=== PATIENT | female | born 1930 | race Caucasian/White ===

== ENCOUNTER 2016-10-08 17:12 | Inpatient (IN) | payer MEDICARE, OTHER ==
[~2016-10-08] VITALS: Ht 162.6 cm; Wt 80.0 kg
[2016-10-08 17:25] VITALS: BP 234/108; PULSE 83; RESP 15; O2SAT 96
[2016-10-08 18:58] VITALS: BP 195/91; PULSE 78; RESP 12; O2SAT 95
[2016-10-08 20:05] VITALS: BP 195/91; PULSE 78; RESP 12; O2SAT 95
--- NOTE | 2016-10-08 20:29 | ED.REPORT ---
HPI-Neurologic Deficit Date of Service Oct 08, 2016 ED Provider: Howard Barker DO Patient is a 86 year old female with a history of hypertension who presents to the ED after she developed a headache 5 days ago and slurred speech 4 days ago. Patient states that she developed a severe headache 5 days ago which prevented her from sleeping well. However her headache was mostly resolved by the next day and has only been intermittently present since that time. Patient reported having high blood pressure when her headache first began. Patient states that she has not noticed a correlation between high blood pressure and her headaches.The next day the patient develop slurred speech and difficulty with word finding. Patient states that these symptoms are now resolved. Patient reports ongoing shortness of breath (something that is currently being workup up by her PCP) but she denies chest pain. She denies nausea, vomiting, or diarrhea. The patient states that she presented to the ED tonight because her family finally made her seek medical care. Patient denies a history of prior stroke. Nursing Notes Stated Complaint: SLURRED SPEECH/HIGH BP Chief Complaint: General Complaint Nursing Notes Reviewed: Yes Allergies: Coded Allergies: Sulfa (Sulfonamide Antibiotics) (Verified Allergy, Intermediate, rash, ) Scheduled ([Qvar]) 40 MCG INHALATION 2 PUFF DAILY Atenolol (Atenolol) 50 Mg Tablet 50 MG PO DAILY Ferrous Sulfate (Ferrous Sulfate) 325 Mg Tablet 325 MG PO DAILY Lisinopril (Lisinopril) 40 Mg Tablet 40 MG PO DAILY Montelukast (Montelukast) 10 Mg Tablet 10 MG PO HS Scheduled PRN Albuterol HFA (Proair HFA) 8.5 Gm Hfa.aer.ad 2 PUFFS INHALATION Q4H PRN PRN For Shortness of Breath General Time Seen by Provider: 20:28 Chief Complaint Slurred speech, Other (headache) Hx Obtained From: Patient Arrived By: Walk-in Sudden in Onset?: No Onset Occurred: 4 days ago (4-5 days ago) Symptom Duration: Since onset Location: : Head Quality: Painful Severity: Current: Mild Severity: Maximum: Severe Recent Healthcare: No recent doctor visit, No recent hospitalization Similar Sx Previous: No Risk Factors NIH Stroke Scale Level of Consciousness: Alert and responsive (0) Ask Month & Age: Both questions right (0) Open/Close Eyes/Hand Die Lay Out Worker: Performs both tasks (0) Horizontal EO Movements: None (0) Visual Otero: No visual loss (0) Facial Palsy: Normal symmetry (0) Right Arm Motor Drift (10s): No drift 10 sec (0) Left Arm Motor Drift (10s): No drift 10 sec (0) Right Leg Motor Drift (5s): No drift 5 sec (0) Left Leg Motor Drift (5s): No drift 5 sec (0) Limb Ataxia FNF/Heel-Greene: No ataxia (0) Sensation (Arms/Legs/Face): No sensory loss (0) Language Aphasia: No aphasia, normal (0) Dysarthria: No dysarthria, normal (0) Extinction/Inattention: No exctinct/inattent (0) NIHSS Score: 0 Time NIHSS Performed: 21:20 Date NIHSS Performed: Oct 08, 2016 Past Medical History Past Medical History Reports: Hypertension Past Surgical History none reported Smoking History Unknown if Ever Smoker Social History Other Social History: Good social support, Local resident Ambulatory Status Independent Review of Systems Constitutional: Denies: Chills Respiratory: Reports: Shortness of breath, Denies: Non-productive cough Cardiovascular: Denies: Chest pain, Palpitations GI: Denies: Diarrhea, Nausea, Vomiting Neurologic: Reports: Headache, Slurred speech, Unable to speak (difficulty with word finding) Complete sys rev & neg: except as marked. Physical Exam Initial Vital Signs Vital Signs (First) Date Time Temp Pulse Resp B/P Pulse Ox O2 Delivery O2 Flow Rate FiO2 10/08/16 17:25 36.2 83 15 234/108 96 Room Air Initial VS: Reviewed ENT: Conjunctiva normal, No scleral icterus Neck: Supple, Full range of motion Abdomen / GI: Soft, Non-tender, No guarding, No rebound, No distention Extremities: Vascular intact, Neuro intact, No swelling Skin: Warm, Dry, No cyanosis Psychiatric: Mood/affect normal, Behavior normal, Normal thought content General/Constitutional: Awake, Alert, No acute distress Head / Eyes: Normocephalic, PERRL, Conjunctiva NL Respiratory / Chest: Breath sounds NL, Breath sounds = bilat, No respiratory distress, No rales, No rhonchi, No wheezing Cardiovascular: Heart rate NL, Regular rhythm, Heart sounds NL, No murmurs Neurologic: Oriented X3, Speech NL, No motor deficits, No sensory deficits see NIH stroke scale for further details Interpretation & Diagnostics Lab Results Interpretation Result Diagram: 10/09/16 0325 10/09/16 0325 Test 10/08/16 20:50 10/08/16 21:49 Prothrombin Time 10.1sec (8.1-12.5) Prothromb Time International Ratio 0.95ratio Troponin T 0.010ug/L (0.0-0.011) Urine Color Yellow (YELLOW) Urine Appearance Cloudy (CLEAR,HAZY) Urine pH 6.5 (5.0-8.0) Urine Specific [place] 1.020 (1.003-1.035) Urine Protein Negativemg/dL (NEG,TRACE) Urine Glucose (UA) Negativemg/dL (NEGATIVE) Urine Ketones Tracemg/dL (NEGATIVE) Urine Occult Blood Small (NEGATIVE) Urine Nitrite Positive (NEGATIVE) Urine Bilirubin Negative (NEGATIVE) Urine Urobilinogen Normalmg/dL (NORMAL) Urine Leukocyte Esterase Large (NEGATIVE) Urine RBC 3-10/hpf (0-2) Urine WBC >50/hpf (0-5) Urine Epithelial Cells Moderate/hpf (NONE-MOD) Urine Crystals None seen (NONE SEEN) Urine Bacteria Many/hpf (NONE-FEW) Urine Hyaline Casts None/lpf (NONE) Urine Granular Casts None seen (NONE SEEN) Urine Waxy Casts None seen (NONE SEEN) Urine Red Blood Cell Casts None seen (NONE SEEN) Urine White Blood Cell Casts None seen (NONE SEEN) Urine Mucus None seen (None Seen) Urine Trichomonas None seen (NONE SEEN) Urine Yeast None (NONE SEEN) Urinalysis Comment None Urine Culture Reflexed Indicated CT Head Interpretation IMPRESSION: 1. No acute intracranial abnormality. 2. Mild cerebral volume loss. 3. Fluid opacification of the right maxillary sinus partially visualized suggesting acute sinusitis. Dictated by: Titi Watkins M.D. on 10/08/2016 at 20:42 Approved by: Titi Watkins M.D. on 10/08/2016 at 20:45 Study: Head CT no contrast Interpretation / Wet Read by: Interpret - Radiologist Re-Eval/Medical Decision Source of Hx: Old records Re-Evaluation/Progress : Time of Eval: 22:36 Patient Status: Condition improved Re-Evaluation/Progress Note: Patient was informed that her CT scan was negative. Her symptoms are likely due to a TIA. Her headache is likely due to her ongoing hypertension, which has improved in the ED. She was also found to have UTI. Patient will be admitted to the hospital for further care. Patient understands and agrees with this plan. All questions were addressed. Consultation : Referral / Consult Name: Edmund Crooks MD Consulted With: Hospitalist Call Returned at: 22:43 Software Testing Specialist: Will see patient, Agrees with eval, Agrees with plan, Accepts admit Note: Spoke with Dr. Crooks, hospitalist, who agrees to accept admit. Counseled Regarding: Diagnosis, Lab results, Need for admission Discharge & Departure Impression: Primary Impression: TIA (transient ischemic attack) Transient cerebral ischemia type: unspecified Qualified Code: G45.9 - Transient cerebral ischemic attack, unspecified Additional Impressions: UTI (urinary tract infection) Urinary tract infection type: acute cystitis Hematuria presence: without hematuria Qualified Code: N30.00 - Acute cystitis without hematuria Hypertension Hypertension type: essential hypertension Hypertension goal: unspecified goal Qualified Code: I10 - Essential (primary) hypertension Sinusitis Sinusitis location: unspecified location Chronicity: acute Recurrence: not specified Qualified Code: J01.90 - Acute sinusitis, unspecified Disposition: ADMITTED TO HOSPITAL Discharge Condition All VS Reviewed: Yes Condition: Stable Referrals: Deandre Briceño DO (PCP) Beto Attestation Portions of this note were transcribed by Tova Ruiz. I, Dr. Barker personally performed the history, physical exam and medical decision-making; I reviewed and confirmed the accuracy of the information in the transcribed note. Signed by: Beto Davila, 10/08/2016 1172 copies to: Deandre Briceño Todd P DO Oct 08, 2016 20:29 Tova Ruiz Oct 08, 2016 20:50 (NONE-MOD) Urine Crystals None seen (NONE SEEN) Urine Bacteria Many/hpf (NONE-FEW) Urine Hyaline Casts None/lpf (NONE) Urine Granular Casts None seen (NONE SEEN) Urine Waxy Casts None seen (NONE SEEN) Urine Red Blood Cell Casts None seen (NONE SEEN) Urine White Blood Cell Casts None seen (NONE SEEN) Urine Mucus None seen (None Seen) Urine Trichomonas None seen (NONE SEEN) Urine Yeast None (NONE SEEN) Urinalysis Comment None Urine Culture Reflexed Indicated CT Head Interpretation IMPRESSION: 1. No acute intracranial abnormality. 2. Mild cerebral volume loss. 3. Fluid opacification of the right maxillary sinus partially visualized suggesting acute sinusitis. Dictated by: Titi Watkins M.D. on 10/08/2016 at 20:42 Approved by: Titi Watkins M.D. on 10/08/2016 at 20:45 Study: Head CT no contrast Interpretation / Wet Read by: Interpret - Radiologist Re-Eval/Medical Decision Source of Hx: Old records Re-Evaluation/Progress : Time of Eval: 22:36 Patient Status: Condition improved Re-Evaluation/Progress Note: Patient was informed that her CT scan was negative. Her symptoms are likely due to a TIA. Her headache is likely due to her ongoing hypertension, which has improved in the ED. She was also found to have UTI. Patient will be admitted to the hospital for further care. Patient understands and agrees with this plan. All questions were addressed. Consultation : Referral / Consult Name: Edmund Crooks MD Consulted With: Hospitalist Call Returned at: 22:43 Software Testing Specialist: Will see patient, Agrees with eval, Agrees with plan, Accepts admit Note: Spoke with Dr. Crooks, hospitalist, who agrees to accept admit. Counseled Regarding: Diagnosis, Lab results, Need for admission Discharge & Departure Impression: Primary Impression: TIA (transient ischemic attack) Transient cerebral ischemia type: unspecified Qualified Code: G45.9 - Transient cerebral ischemic attack, unspecified Additional Impressions: UTI (urinary tract infection) Urinary tract infection type: acute cystitis Hematuria presence: without hematuria Qualified Code: N30.00 - Acute cystitis without hematuria Hypertension Hypertension type: essential hypertension Hypertension goal: unspecified goal Qualified Code: I10 - Essential (primary) hypertension Sinusitis Sinusitis location: unspecified location Chronicity: acute Recurrence: not specified Qualified Code: J01.90 - Acute sinusitis, unspecified Disposition: ADMITTED TO HOSPITAL Discharge Condition All VS Reviewed: Yes Condition: Stable Referrals: Deandre Briceño DO (PCP) Scribe Attestation Portions of this note were transcribed by Tova Ruiz. I, Dr. Barker personally performed the history, physical exam and medical decision-making; I reviewed and confirmed the accuracy of the information in the transcribed note. Signed by: Beto Davila, 10/08/2016 2245 copies to: Deandre Briceño Todd P DO Oct 08, 2016 20:29 Tova Ruiz Oct 08, 2016 20:50
--- NOTE | 2016-10-08 20:52 | DRSVH ---
PROCEDURE: CT BRAIN WITHOUT CONTRAST ([id number]) INDICATIONS: slurred speech TECHNIQUE: Noncontrast 4.5 mm thick angled axial sections acquired from the foramen magnum to the vertex, with c oronal reformats. COMPARISON: None. FINDINGS: Image quality: Excellent. CSF spaces: Basal cisterns are patent. No extra-axial fluid collections. The ventricles are symmet ramon in size and shape. There is mild cerebral volume loss with prominence of the extra-axial spaces and ventricles. Brain: No intracranial hemorrhage, mass, or mass effect. 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 The gallo-white matter junction appears preserved. Skull and face: Calvarium and visualized facial bones appear intact, without suspicious lesions. Sinuses: Visualized sinuses demonstrate partial fluid opacification of the right maxillary sinus wit h an air-fluid level. Mastoid air cells are clear. IMPRESSION: 1. No acute intracranial abnormality. 2. Mild cerebral volume loss. 3. Fluid opacification of the right maxillary sinus partially visualized suggesting acute sinusitis. Dictated by: Titi Watkins M.D. on 10/08/2016 at 20:42 Approved by: Titi Watkins M.D. on 10/08/2016 at 20:45
[2016-10-08 21:18] LABS: BASOPHILS % (AUTO) 0.3 % (0-3); EOSINOPHILS % (AUTO) 1.7 % (0-5); MONOCYTES % (AUTO) 5.9 % (4-12); Mean Corpuscular Volume 89.3 fL (81-100); NEUTROPHILS % (AUTO) 74.7 % (40-74); Platelet Count 339 bil/L (150-400)
[2016-10-08 21:26] LABS: INR 0.95 ratio
[2016-10-08] MEDS ORDERED: Amoxicillin-Clav 875-125 mg Tablet PO ONE (22:00)
[2016-10-08 22:16] LABS: APPEARANCE,URINE CLOUDY (CLEAR,HAZY); COLOR,URINE YELLOW (YELLOW); OCCULT BLOOD,URINE SMALL (NEGATIVE); PH,URINE 6.5 (5.0-8.0); UROBILINOGEN,URINE NORMAL (NORMAL)
[2016-10-08 22:22] LABS: TROPONIN T 0.01 ug/L (0.0-0.011)
[2016-10-08] MEDS ORDERED: cefTRIAXone Inj 2,000 MG in Dextrose 5% Minibag Plus 50 ML IV ONE (22:25)
[2016-10-08] MEDS ORDERED: FERR-83 PO (22:33)
[2016-10-08] MEDS ORDERED: QVAR INHALATION (22:33)
[2016-10-08] MEDS ORDERED: LISI40TA PO (22:33)
[2016-10-08] MEDS ORDERED: ATEN50TA PO (22:33)
[2016-10-08] MEDS ORDERED: ALBU8.5H2 INHALATION (22:33)
[2016-10-08] MEDS ORDERED: MONT10TA23 PO (22:33)
[2016-10-08 22:41] VITALS: BP 185/81; PULSE 84; RESP 20; O2SAT 95
[2016-10-08] MEDS ORDERED: Ondansetron 2 mg/mL 2 mL Inj IV PRN (23:40)
[2016-10-08] MEDS ORDERED: Labetalol 5 mg/mL 4 mL Inj IVPUSH PRN (23:40)
[2016-10-08] MEDS ORDERED: Polyethylene Glycol (PEG) 17 Gm Powder PO PRN (23:40)
[2016-10-08] MEDS ORDERED: Alum-Mag Hydrox-Simeth 30 mL Suspension PO PRN (23:40)
[2016-10-08 23:59] VITALS: BP 216/99; PULSE 69; RESP 20; O2SAT 95
[2016-10-09] VITALS (10 sets, daily range): BP systolic 138–202; BP diastolic 66–95; PULSE 60–86; RESP 16–20; O2SAT 92–97
--- NOTE | 2016-10-09 00:07 | PCM.HPMED ---
Subjective Date of Service Oct 08, 2016 Primary Provider: Admitting Physician: Edmund Crooks MD Primary Care Physician: Deandre Briceño DO Attending Physician: Edmund Crooks MD Admit Status: From the Emergency Department, [facility] Telemetry Chief Complaint: Headache and slurred speech History of Present Illness: Ms. Ashanti Chavez is a pleasant 86 year old female with a history of hypertension and remote history of right breast cancer s/p lumpectomy who presents to the ED after she developed a headache 5 days ago and slurred speech 4 days ago. Patient reports a severe but intermittent left-sided headache in the last 5 days. She cannot describe the headache very well, but reports to have occasional "shocking sensation" from the headache. It localizes from the left occiput and radiates to the left frontal. She also notes some changes in vision as well. The headache does not improve with Tylenol. About 4 days ago, her son noted that her speech was a little slurred and the patient also had difficulty finding words, but no other stroke symptoms. Thus, they did not think much of it. The slurred speech resolved the next day, but her headache persists. The patient has been checking her BP at home and it has been high with SBP>200. Today, she discussed this with her friend, who is a nurse, and was recommended to go to the ED. Patient also admits to ongoing shortness of breath and dry cough for 3 months that is currently being worked up by her PCP. Her recent CT chest on 10/03 did not reveal any pulmonary issue. She was given Qvar and Ventolin yesterday. Patient denies any history of smoking, asthma, or COPD. She has been pretty healthy for most of her life. She was diagnosed with HTN about 6 months ago and was started on Lisinopril and Atenolol. Patient states that she has never had UTI in her life, but notes that increased urinary frequency and nocturia recently. She denies dysuria, fever, chills, nausea, vomiting, or abdominal pain. No prior history of stroke or CAD. She admits to high salt diet and recent stress in the family. She also has had uncontrolled right knee pain that she has to use crutches to get around. She has a walker but does not like to use it. In the ED, patient had marked elevated BP of 234/108. Her vital signs were otherwise normal. Unremarkable CBC and CMP. UA positive for many bacteria, WBC, and leukocyte esterase. CT brain without contrast showed No acute intracranial abnormality. NIHSS score of 0. Incidentally, she was found to have fluid opacification of the right maxillary sinus partially visualized suggesting acute sinusitis on the CT. Review of Systems: A comprehensive review of systems was conducted with the patient and found to be negative except as above in the History of Present Illness. Allergies Coded Allergies: Sulfa (Sulfonamide Antibiotics) (Verified Allergy, Intermediate, rash, ) Home Medications Home medication reconciliation pending [facility] Hypertension Surgical History 4 hip surgeries, including bilateral hip replacements and revisions Appendectomy Hysterectomy Right breast lumpectomy Family History None reported Social History Hx Alcohol Use: Yes (occasional) Hx Substance Use: No Hx Tobacco Use: No Smoking Status: Never Smoker Living Arrangement: with Family Additional Information Patient reports to use crutches to ambulate at baseline due to hip and knee pain , worse on the right. She does not like to use a walker. No issue with swallowing. Exam Vital Signs Vital Sign - Last Date Time Temp Pulse Resp B/P Pulse Ox O2 Delivery O2 Flow Rate FiO2 10/08/16 22:41 84 20 185/81 95 Room Air 10/08/16 20:05 36.2 Exam General: No acute distress, well-developed, well-nourished, appropriately interactive, pleasant HEENT: Normocephalic, atraumatic. External ears without defect. Pupils equal, round, and reactive to light and accommodation. Anicteric sclerae, moist conjunctivae, and no lid lag. Oropharynx free of erythema and cobble stoning with moist mucosa. No sinus tenderness. Neck: Supple with full range of motion. No jugular venous distension. No bruits. No lymphadenopathy or thyromegaly. Cardiovascular: Regular rate and rhythm with no murmurs, rubs, or gallops appreciated Pulmonary: Clear to auscultation bilaterally with no crackles, wheezes, or rhonchi. Normal respiratory effort with no use of accessory muscles. Abdomen: Bowel tones present. Soft, nontender, nondistended. No hepatosplenomegaly or masses appreciated. Extremities: Trace bilateral LE pitting edema. No clubbing, cyanosis, or lymphadenopathy appreciated. Skin: Normal temperature, turgor, and texture; no rash, ulcers, or subcutaneous nodules appreciated. Neurological: Normal speech. Cranial nerves grossly intact. Normal muscle strength, tone, and bulk. Unable to assess right LE due to severe knee and hip pain. Reflexes, coordination, and sensory function within normal limits. Gait was not assessed. Psychiatric: Normal mood and affect. Alert and oriented to person, place, and time. Lab and Diagnostics Result Diagram: 10/08/16204910/08/162049 X-Rays, CTs and MRIs PROCEDURE: CT BRAIN WITHOUT CONTRAST IMPRESSION: 1. No acute intracranial abnormality. 2. Mild cerebral volume loss. 3. Fluid opacification of the right maxillary sinus partially visualized suggesting acute sinusitis. Dictated by: Titi Watkins M.D. on 10/08/2016 at 20:42 Approved by: Titi Watkins M.D. on 10/08/2016 at 20:45 Assessment & Plan 86 year old female with a history of hypertension and remote history of right breast cancer s/p lumpectomy who presents to the ED after she developed a headache 5 days ago and slurred speech 4 days ago. She is admitted for hypertensive emergency, possible TIA, acute UTI, and acute sinusitis. 1. Acute hypertensive emergency, present on admission, active. - BP up to 234/108 in the ED with possible TIA. - Elevated BP is likely due to right knee pain and recent stress. - In light of possible stroke/TIA, will allow permissive hypertension. Goal SBP is 170-180. - Labetalol IV PRN. Keep MAP above 110. - Will resume PO antihypertensive medications in the AM. Patient takes Atenolol and Lisinopril at home. Due to her chronic dry cough, will switch to Losartan. - Continue to monitor vital signs Q4H. 2. Possible TIA, acute, present on admission, improved. - Normal neurological exam and speech. However, moderate risk for subsequent stroke with age>60, BP >140/90, and slurred speech. - CT brain negative. - MRI stroke protocol in the morning. - PT/ST evaluation in the morning. - Nurse swallow screen. If pass, ok to advance diet as tolerated. - Start ASA 324mg and Lipitor 40mg. - Check Echo in the morning. - Lipid panel, A1c, and TSH/Free T4 in the AM. - Monitor for change in neurological status. 3. Acute UTI, uncomplicated, present on admission, active. - UA with significant WBC, leukocyte esterase, and many bacteria. - Urine culture pending. Follow up for sensitivity. - Will start Augmentin 875mg Q12 hours. Pharmacy recommended to treat for 10 days total. - Monitor vital signs. 4. Acute sinusitis, present on admission, active. - Incidental finding on CT brain. - Patient is asymptomatic. - Treat with Augmentin as above. 5. Chronic bilateral hip and knee pain, active. - Recommended orthopedic follow up as outpatient. - Pain control with hydrocodone-APAP PRN in the hospital. 6. Chronic cough, ongoing workup. - Possibly due to ACEi usage. Will d/c Lisinopril. - Follow up as outpatient. 7. History of right breast cancer s/p lumpectomy, presume stable. - Follow up as outpatient. 8. Code status: FULL CODE Pain Evaluation: Adequate Pain Control GI Prophylaxis: H2 celso VTE Prophylaxis: Sub-Q Heparin (Unfractionated) Resuscitation Status: CPR: Attempt Resuscitation Attending Statement The patient was seen and examined together with Dr. Helton on 10/08 and I agree with the history, exam and plan as outlined in the note above. Damon Helton DO Oct 09, 2016 00:07 Edmund Coroks MD Oct 09, 2016 06:39
[2016-10-09] MEDS: Heparin 5,000 Unit/mL Inj SUBQ SCH ×3 (01:05→17:04)
[2016-10-09] MEDS ORDERED: Albuterol 2.5 mg/3 mL Inhalation Solution NEB PRN (01:55)
[2016-10-09 04:00] LABS: BASOPHILS % (AUTO) 0.3 % (0-3); EOSINOPHILS % (AUTO) 3.6 % (0-5); Mean Corpuscular Hemoglobin 28.6 pg (27.0-35.0); Mean Corpuscular Volume 89.2 fL (81-100); NEUTROPHILS % (AUTO) 72.3 % (40-74); Platelet Count 295 bil/L (150-400)
[2016-10-09] MEDS: HYDROcodone-APAP 5-325 mg Tablet PO PRN ×3 (04:50→22:42)
[2016-10-09 05:06] LABS: Magnesium 2.3 mg/dL (1.6-2.6)
--- NOTE | 2016-10-09 05:48 | NUR ---
Admit: Pt admitted to [facility] room 2019. med rec completed in ER. pt placed on Tele- showing SR 60s. BP elevated 190s/90s. aware- allow for HTN at this time. PRN labetalol available for SBP >220. Pt up to BSC having frequency and urgency. PRN no available however pt refusing at this time. PRN teylong and NORCO given for h/a.
--- NOTE | 2016-10-09 10:00 | NUR ---
MRI Brain She left [facility] 2019 via wheelchair about 0855 to go get an MRI done. Business Coordinator notified. She returned from MRI to [facility] 2019 about 1000 where she was settled back into her bed and placed back on telemetry. Care continues.
--- NOTE | 2016-10-09 10:14 | DRSVH ---
PROCEDURE: MRI STROKE PROTOCOL ([id number]) Pre- and post-contrast brain MRI, non-contrast brain MR angiogram, pre- and postcontrast neck MR buster ogram INDICATIONS: Slurred speech, HTN TECHNIQUE: Brain: Noncontrast axial T1 spin echo, axial T2 fast spin echo, sagittal and axial FLAIR, coronal T2 fast spin echo, axial gradient echo, axial diffusion and ADC through the brain. After the administr ation of contrast, axial 3D VIBE of the cranial vasculature and brain. Brain MRA: Non-contrast 3-D time of flight MR angiogram, with multiple qyaggge-okxjammrg-tvtpjicqzz (MIP) reformats performed. Neck MRA: Axial and sagittal TruFISP through the neck. Coronal dynamic MR angiogram during administ ration of contrast in the arterial and venous phases, with 3-dimenstional xnnrkgl-eadxvsagg-ocbrypqci n (MIP) reformats constructed from subtraction images. COMPARISON: [facility], CT, CT BRAIN WO CON, 10/08/2016, 20:35. FINDINGS: Image quality: Excellent. BRAIN: CSF spaces: Ventricles are normal in size and shape. Basal cisterns are patent. No extra-axial flu id collections. Brain: No intracranial bleeds or mass effects. Gale-white matter interface is normal. Diffusion we ighted images show no acute ischemic insults. There is mild diffuse cerebral volume loss. There is a mild degree of patchy high FLAIR signal intensity within the periventricular and subcortical white m atter, suggestive of small vessel ischemic disease. Brainstem appears normal. Normal intravascular f low voids are present. No abnormal intracranial enhancement. Skull and face: Calvarial marrow signal is normal. Orbits appear normal. Sinuses: There is moderate right maxillary sinus mucosal thickening. Sinuses and mastoids are otherw ise clear. BRAIN MR ANGIOGRAM: Anterior circulation: Intracranial internal carotid arteries are normal in size and enhancement. Th e flow within the paired anterior cerebral arteries is normal and symmetric. The flow within the mid dle cerebral arteries is normal and symmetric. The anterior communicating artery is seen. No stenos es, occlusions, or aneurysms. Posterior circulation: The visualized portions of the vertebral arteries demonstrate normal caliber, and join to form a normal appearing basilar artery. Near origin of the right posterior cerebra l artery is present. The flow within the posterior cerebral arteries is normal and symmetric. No marco noses, occlusions, or aneurysms. NECK MR ANGIOGRAM: Carotids: Great vessels demonstrate a conventional anatomy as they arise from the aortic arch. The origins of the common carotid arteries appear patent. The calibers and courses of both common caroti d arteries are normal. The bifurcation regions appear normal bilaterally. The internal carotid lila max demonstrate normal course and caliber. Posterior circulation: The proximal vertebral arteries are not well-seen. More superior portions of both vertebral arteries demonstrate normal course and caliber, and join to form a normal appearing ba silar artery. Miscellaneous: Subclavian arteries appear patent. Pre-contrast images through the neck show no soft tissue abnormalities. IMPRESSION: BRAIN MRI: 1. No acute process. No recent infarct. 2. Mild volume loss and small vessel ischemic disease. 3. Moderate right maxillary sinus mucosal thickening. BRAIN MR ANGIOGRAM: Negative cerebral MR angiography. NECK MR ANGIOGRAM: 1. Patent bilateral internal carotid arteries. 2. Suboptimally visualized proximal vertebral arteries, which are otherwise patent. The estimate of stenosis included in the report of the imaging study was calculated using the NASCET method Dictated by: Cyndi Olmos M.D. on 10/09/2016 at 10:07 Approved by: Cyndi Olmos M.D. on 10/09/2016 at 10:13
[2016-10-09] MEDS: Amoxicillin-Clav 875-125 mg Tablet PO SCH ×2 (11:00→19:44)
--- NOTE | 2016-10-09 13:43 | NUR ---
Evaluation completed. Please go to "Notes" then click on "Assessments and Notes" (bottom left corner of screen). Then select appropriate discipline tab on top of screen.
--- NOTE | 2016-10-09 14:27 | PCM.PNMED ---
Subjective Date of Service Oct 09, 2016 Subjective Patient denies any neurological symptoms at this point. She does note that she still has a frontal headache present. Exam Vital Signs Vital Sign - Last Date Time Temp Pulse Resp B/P Pulse Ox O2 Delivery O2 Flow Rate FiO2 10/09/16 12:42 36.9 66 18 200/86 94 Room Air Intake and Output 10/08/16 10/08/16 10/09/16 Cumulative From/Thru 15:00 23:00 07:00 10/08/16 17:25 - 10/09/16 05:22 Intake Total 450 ml 450 ml Output Total 500 ml 500 ml Balance -50 ml -50 ml Intake Oral 400 ml 400 ml IV Total 50 ml 50 ml Output Urine Total 500 ml 500 ml # Bowel Movements 0 0 Exam Constitutional: Elderly woman in no acute distress Head: Normocephalic atraumatic Eyes: PERRLA DC EOMI Mouth: No lesions Chest: Clear to auscultation Cor: Regular rate and rhythm S1-S2 Abdomen: Soft nontender bowel sounds present Extremities: No pedal edema Neuro: Alert and oriented 3, motor strength is intact bilaterally, speech is intact Lab and Diagnostics Result Diagram: 10/09/16 0325 10/09/16 0325 X-Rays, CTs and MRIs PROCEDURE: CT BRAIN WITHOUT CONTRAST IMPRESSION: 1. No acute intracranial abnormality. 2. Mild cerebral volume loss. 3. Fluid opacification of the right maxillary sinus partially visualized suggesting acute sinusitis. Dictated by: Titi Watkins M.D. on 10/08/2016 at 20:42 Approved by: Titi Watkins M.D. on 10/08/2016 at 20:45 Patient Name: SERGEY PATEL MR#: [id number] Location: [facility] Ordering Phys: HeltonDamon Kaylyn Date of Service: 10/09/16 0900 PROCEDURE: MRI STROKE PROTOCOL ([id number]) Pre- and post-contrast brain MRI, non-contrast brain MR angiogram, pre- and postcontrast neck MR angiogram INDICATIONS: Slurred speech, HTN TECHNIQUE: Brain: Noncontrast axial T1 spin echo, axial T2 fast spin echo, sagittal and axial FLAIR, coronal T2 fast spin echo, axial gradient echo, axial diffusion and ADC through the brain. After the administration of contrast, axial 3D VIBE of the cranial vasculature and brain. Brain MRA: Non-contrast 3-D time of flight MR angiogram, with multiple maximum- intensity-projection (MIP) reformats performed. Neck MRA: Axial and sagittal TruFISP through the neck. Coronal dynamic MR angiogram during administration of contrast in the arterial and venous phases, with 3-dimenstional qurznjr-wmzbrauct-riwtzfwvvq (MIP) reformats constructed from subtraction images. COMPARISON: [facility], CT, CT BRAIN WO CON, 10/08/2016, 20:35. FINDINGS: Image quality: Excellent. BRAIN: CSF spaces: Ventricles are normal in size and shape. Basal cisterns are patent. No extra-axial fluid collections. Brain: No intracranial bleeds or mass effects. Gale-white matter interface is normal. Diffusion weighted images show no acute ischemic insults. There is mild diffuse cerebral volume loss. There is a mild degree of patchy high FLAIR signal intensity within the periventricular and subcortical white matter, suggestive of small vessel ischemic disease. Brainstem appears normal. Normal intravascular flow voids are present. No abnormal intracranial enhancement. Skull and face: Calvarial marrow signal is normal. Orbits appear normal. Sinuses: There is moderate right maxillary sinus mucosal thickening. Sinuses and mastoids are otherwise clear. BRAIN MR ANGIOGRAM: Anterior circulation: Intracranial internal carotid arteries are normal in size and enhancement. The flow within the paired anterior cerebral arteries is normal and symmetric. The flow within the middle cerebral arteries is normal and symmetric. The anterior communicating artery is seen. No stenoses, occlusions, or aneurysms. Posterior circulation: The visualized portions of the vertebral arteries demonstrate normal caliber, and join to form a normal appearing basilar artery. Near origin of the right posterior cerebral artery is present. The flow within the posterior cerebral arteries is normal and symmetric. No stenoses, occlusions, or aneurysms. NECK MR ANGIOGRAM: Carotids: Great vessels demonstrate a conventional anatomy as they arise from the aortic arch. The origins of the common carotid arteries appear patent. The calibers and courses of both common carotid arteries are normal. The bifurcation regions appear normal bilaterally. The internal carotid arteries demonstrate normal course and caliber. Posterior circulation: The proximal vertebral arteries are not well-seen. More superior portions of both vertebral arteries demonstrate normal course and caliber, and join to form a normal appearing basilar artery. Miscellaneous: Subclavian arteries appear patent. Pre-contrast images through the neck show no soft tissue abnormalities. IMPRESSION: BRAIN MRI: 1. No acute process. No recent infarct. 2. Mild volume loss and small vessel ischemic disease. 3. Moderate right maxillary sinus mucosal thickening. BRAIN MR ANGIOGRAM: Negative cerebral MR angiography. NECK MR ANGIOGRAM: 1. Patent bilateral internal carotid arteries. 2. Suboptimally visualized proximal vertebral arteries, which are otherwise patent. The estimate of stenosis included in the report of the imaging study was calculated using the NASCET method Dictated by: Cyndi Olmos M.D. on 10/09/2016 at 10:07 Approved by: Cyndi Olmos M.D. on 10/09/2016 at 10:13 Assessment & Plan 86 year old female with a history of hypertension and remote history of right breast cancer s/p lumpectomy who presents to the ED after she developed a headache 5 days ago and slurred speech 4 days ago. She is admitted for hypertensive emergency, possible TIA, acute UTI, and acute sinusitis. 1. Acute hypertensive emergency, present on admission, active. - BP up to 234/108 in the ED with possible TIA. - Elevated BP is likely due to right knee pain and recent stress. - In light of possible stroke/TIA, will allow permissive hypertension. Goal SBP is less than 170. - Labetalol IV PRN. Keep MAP above 110. - Will resume PO antihypertensive medications in the AM. Patient takes Atenolol and Lisinopril at home. Due to her chronic dry cough, will switch to Losartan. - Continue to monitor vital signs Q4H. 2. Possible TIA, acute, present on admission, improved. - Normal neurological exam and speech. However, moderate risk for subsequent stroke with age>60, BP >140/90, and slurred speech. - CT brain negative. - MRI stroke protocol in the morning which did not reveal any significant acute abnormalities - PT/ST evaluation in the morning. - Nurse swallow screen. Patient did pass swallow screen today. - Start ASA 324mg and Lipitor 40mg. - Check Echo in the morning. And is still pending to be done at the time of this dictation - Lipid panel, A1c, and TSH/Free T4 in the AM. - Monitor for change in neurological status. 3. Acute UTI, uncomplicated, present on admission, active. - UA with significant WBC, leukocyte esterase, and many bacteria. - Urine culture pending. Follow up for sensitivity. - Will start Augmentin 875mg Q12 hours. Pharmacy recommended to treat for 10 days total. - Monitor vital signs. 4. Acute sinusitis, present on admission, active. - Incidental finding on CT brain. - Patient is asymptomatic. - Treat with Augmentin as above. 5. Chronic bilateral hip and knee pain, active. - Recommended orthopedic follow up as outpatient. - Pain control with hydrocodone-APAP PRN in the hospital. 6. Chronic cough, ongoing workup. - Possibly due to ACEi usage. Will d/c Lisinopril. - Follow up as outpatient. 7. History of right breast cancer s/p lumpectomy, presume stable. - Follow up as outpatient. 8. Code status: FULL CODE GI Prophylaxis: H2 celso VTE Prophylaxis: Sub-Q Heparin (Unfractionated) Resuscitation Status: CPR: Attempt Resuscitation Time spent 30 minutes Gabriela Henry MD Oct 09, 2016 14:27
--- NOTE | 2016-10-09 16:59 | DRSVH ---
[facility] [address] [place] [address] Echocardiogram Report Name: SERGEY PATEL Date: 10/09/2016 Height: 64 in Hospital Exam Location: [facility] Weight: 175 lb Gender: Female BSA: 1.8 m2 : 1930 Age: 86 yrs BP: 198/75 mmHg Reason For Study: TIA Ordering Physician: Performed By: Kassi Marsh Referring Physician: Deandre Briceño Interpretation Summary The left ventricle is normal in size, wall thickness, and systolic function without any focal wall motion abnormalities. The ejection fraction is estimated to be 60-65%. The E/A ratio is reversed with an elevated E/E', suggesting impaired early relaxation of the left ventricle with possible increased filling pressures. The right ventricle is normal in size, thickness and function. The right ventricular systolic pressure is estimated at 46 mmHg assuming a right atrial pressure of 3 mm Hg. The left atrium is moderately dilated. Right atrial size is normal. There is no significant valvular heart disease. The aortic root is normal size. No significant changes since prior study and no evidence for cardioembolic source for TIA. Procedure: A two-dimensional transthoracic echocardiogram with color flow and Doppler was performed. The study quality was technically adequate. Comparison is made with the echocardiogram of 05-08-16. The patient was in normal sinus rhythm during the exam. Left Ventricle: The left ventricle is normal in size, wall thickness, and systolic function without any focal wall motion abnormalities. The ejection fraction is estimated to be 60-65%. The E/A ratio is reversed with an elevated E/E', suggesting impaired early relaxation of the left ventricle with possible increased filling pressures. Right Ventricle: The right ventricle is normal in size, thickness and function. Atria: The left atrium is moderately dilated. Right atrial size is normal. The interatrial septum is intact with no evidence for an atrial septal defect. Mitral Valve: The mitral valve leaflets appear mildly thickened, but open well. There is mild mitral annular calcification. There is trace mitral regurgitation. Aortic Valve: The aortic valve is moderately calcified. Leaflet mobility is moderately reduced. The calculated aortic valve area is 1.7 cm2. The peak aortic velocity is 1.9 m/sec. The peak aortic velocity on the previous exam was 1.8 m/sec. There is no hemodynamically significant valvular aortic stenosis. No aortic regurgitation is present. Tricuspid Valve: The tricuspid valve is normal in structure and function. There is trace tricuspid regurgitation. The right ventricular systolic pressure is estimated at 46 mmHg assuming a right atrial pressure of 3 mm Hg. Pulmonic Valve: The pulmonic valve is not well seen, but is grossly normal. There is no pulmonic valvular regurgitation. There is no significant valvular heart disease. Great Vessels: The aortic root is normal size. The dimensions of the ascending aorta are normal. The IVC is of normal diameter and collapses greater than 50% with a sniff. This suggests a low right atrial pressure of 3 mm Hg. Pericardium/ Pleura There is no pericardial effusion. There is no pleural effusion. MMode/2D Measurements & Calculations LVIDd: 4.4 cm LA dimension: 4.1 cm RA long axis LVOT diam: 2.0 cm LVIDs: 3.2 cm AoV Opening FS: 27.5 % LA A2 area: 23.7 cm RA area EPSS: 1.1 cm LA A4 area: 22.3 cm Ao root diam IVSd: 0.92 cm LA length (vol) : 15.0 cm LVPWd: 0.97 cm RA vol asc Aorta Diam LA vol: 79.5 ml : 40.0 ml LA vol index RA Ao Arch Diam (Prox : 21.7 mm/ Trans): 2.0 cm RVDd major IVC diam: 1.6 cm : 4.7 cm LV vu. diameter/BSA LV sys. diameter/BSA RVD1 (basal) RVD2 (mid): 2.8 cm (cm/m^2): 2.4 (cm/m^2): 1.7 Doppler Measurements & Calculations Ao V2 max MV E max nick MV E/A: 0.87 TR max nick : 190.5 cm/sec : 97.3 cm/sec Med Peak E' Nick : 326.8 cm/sec Ao max PG MV A max nick TR max PG : 14.5 mmHg : 111.4 cm/sec E/E' med: 18.8 : 42.7 mmHg Ao mean PG MV P1/2t: 53.7 msec Lat Peak E' Nick PA V2 max : 101.7 cm/sec LVOT Max Nick E/E' lat: 14.6 PA mean PG : 94.5 cm/sec E/e' average YI(I,D): 1.7 cm PA Accel Time sev ratio MV A dur: 0.12 sec: 0.11 sec MV dec time MV P1/2t max nick Ao V2 mean LV V1 max PG : 0.18 sec : 124.6 cm/sec Ao V2 VTI: 46.3 cmLV V1 VTI MVA(P1/2t): 4.1 cm2 : 24.7 cm YI(V,D): 1.6 cm2 PA V2 mean YI indexed to BSA : 65.2 cm/sec (cm^2/m^2): 0.92 Reading Physician:BEBE
--- NOTE | 2016-10-10 00:39 | NUR ---
Mentation Pt alert and orientated times three. Asking questions regarding tomorrow's medical plan and results of today's diagnostic testing. Questions answered. Pt is pleasant and mood is stable.
[2016-10-10] MEDS: Heparin 5,000 Unit/mL Inj SUBQ SCH ×2 (01:03→08:51)
[2016-10-10 03:23] VITALS: PULSE 65
[2016-10-10 05:27] VITALS: BP 186/75; PULSE 66; RESP 20; O2SAT 98
[2016-10-10 08:00] VITALS: PULSE 70
[2016-10-10 08:30] VITALS: BP 189/86; PULSE 83; RESP 20; O2SAT 93
--- NOTE | 2016-10-10 08:38 | PCM.DIMED ---
Discharge Instructions Date of Service Oct 10, 2016 Dates of Hospitalization Oct 08, 2016 at 23:00 Discharge Diagnosis Discharge Diagnosis Dysartria,resolved,Hypertensive urgency Diet Heart Healthy Activity No restrictions Call your provider Fever or Chills, Shortness of breath, Bleeding, Chest pain, Vomitting, Excessive diarrhea, Weakness (unilateral) Patient Instructions Follow-up Provider: Deandre Briceño DO Follow-up with PCP in: 1 week (sooner if problems.) Gabriela Henry MD Oct 10, 2016 08:38
[2016-10-10] MEDS ORDERED: LOSA50TA3 PO (08:43)
[2016-10-10] MEDS ORDERED: ASPI81TA3 PO (08:43)
[2016-10-10] MEDS ORDERED: AGM875T PO (08:43)
[2016-10-10] MEDS ORDERED: LACT1CAP86 PO (08:43)
[2016-10-10] MEDS ORDERED: ATOR40TA69 PO (08:43)
--- NOTE | 2016-10-10 09:00 | PCM.DC.MED ---
Discharge Summary Date of Service Oct 10, 2016 Dates of Hospitalization Date of Hospital Admission Oct 08, 2016 at 23:00 Date of Discharge: Oct 10, 2016 Providers: Admitting Physician: Edmund Crooks MD Primary Care Physician: Deandre Briceño DO Attending Physician: Edmund Crooks MD Diagnosis at Time of Discharge Diagnosis at Time of Discharge [place],resolved,Hypertensive urgency Procedures XRay, CTs & MRIs PROCEDURE: CT BRAIN WITHOUT CONTRAST IMPRESSION: 1. No acute intracranial abnormality. 2. Mild cerebral volume loss. 3. Fluid opacification of the right maxillary sinus partially visualized suggesting acute sinusitis. Dictated by: Titi Watkins M.D. on 10/08/2016 at 20:42 Approved by: Titi Watkins M.D. on 10/08/2016 at 20:45 Patient Name: ASHANTI PATEL MR#: [id number] Location: [facility] Ordering Phys: Debbi Heltonnorbert Patiño Date of Service: 10/09/16 0900 PROCEDURE: MRI STROKE PROTOCOL ([id number]) Pre- and post-contrast brain MRI, non-contrast brain MR angiogram, pre- and postcontrast neck MR angiogram INDICATIONS: Slurred speech, HTN TECHNIQUE: Brain: Noncontrast axial T1 spin echo, axial T2 fast spin echo, sagittal and axial FLAIR, coronal T2 fast spin echo, axial gradient echo, axial diffusion and ADC through the brain. After the administration of contrast, axial 3D VIBE of the cranial vasculature and brain. Brain MRA: Non-contrast 3-D time of flight MR angiogram, with multiple maximum- intensity-projection (MIP) reformats performed. Neck MRA: Axial and sagittal TruFISP through the neck. Coronal dynamic MR angiogram during administration of contrast in the arterial and venous phases, with 3-dimenstional dfejlhl-wqhhionsr-vunuzlxhha (MIP) reformats constructed from subtraction images. COMPARISON: [facility], CT, CT BRAIN WO CON, 10/08/2016, 20:35. FINDINGS: Image quality: Excellent. BRAIN: CSF spaces: Ventricles are normal in size and shape. Basal cisterns are patent. No extra-axial fluid collections. Brain: No intracranial bleeds or mass effects. Gale-white matter interface is normal. Diffusion weighted images show no acute ischemic insults. There is mild diffuse cerebral volume loss. There is a mild degree of patchy high FLAIR signal intensity within the periventricular and subcortical white matter, suggestive of small vessel ischemic disease. Brainstem appears normal. Normal intravascular flow voids are present. No abnormal intracranial enhancement. Skull and face: Calvarial marrow signal is normal. Orbits appear normal. Sinuses: There is moderate right maxillary sinus mucosal thickening. Sinuses and mastoids are otherwise clear. BRAIN MR ANGIOGRAM: Anterior circulation: Intracranial internal carotid arteries are normal in size and enhancement. The flow within the paired anterior cerebral arteries is normal and symmetric. The flow within the middle cerebral arteries is normal and symmetric. The anterior communicating artery is seen. No stenoses, occlusions, or aneurysms. Posterior circulation: The visualized portions of the vertebral arteries demonstrate normal caliber, and join to form a normal appearing basilar artery. Near origin of the right posterior cerebral artery is present. The flow within the posterior cerebral arteries is normal and symmetric. No stenoses, occlusions, or aneurysms. NECK MR ANGIOGRAM: Carotids: Great vessels demonstrate a conventional anatomy as they arise from the aortic arch. The origins of the common carotid arteries appear patent. The calibers and courses of both common carotid arteries are normal. The bifurcation regions appear normal bilaterally. The internal carotid arteries demonstrate normal course and caliber. Posterior circulation: The proximal vertebral arteries are not well-seen. More superior portions of both vertebral arteries demonstrate normal course and caliber, and join to form a normal appearing basilar artery. Miscellaneous: Subclavian arteries appear patent. Pre-contrast images through the neck show no soft tissue abnormalities. IMPRESSION: BRAIN MRI: 1. No acute process. No recent infarct. 2. Mild volume loss and small vessel ischemic disease. 3. Moderate right maxillary sinus mucosal thickening. BRAIN MR ANGIOGRAM: Negative cerebral MR angiography. NECK MR ANGIOGRAM: 1. Patent bilateral internal carotid arteries. 2. Suboptimally visualized proximal vertebral arteries, which are otherwise patent. The estimate of stenosis included in the report of the imaging study was calculated using the NASCET method Dictated by: Cyndi Olmos M.D. on 10/09/2016 at 10:07 Approved by: Cyndi Olmos M.D. on 10/09/2016 at 10:13 Cardiac Echo Impression Patient Name: ASHANTI PATEL MR#: [id number] Location: [facility] Ordering Phys: Damon Helton DO Date of Service: 10/09/16 [address] [place] [address] Echocardiogram Report Name: ASHANTI PATEL Date: 10/09/2016 Height: 64 in Hospital Exam Location: [facility] Weight: 175 lb Gender: Female BSA: 1.8 m2 : 1930 Age: 86 yrs BP: 198/75 mmHg Reason For Study: TIA Ordering Physician: Performed By: Kassi Marsh Referring Physician: Deandre Briceño Interpretation Summary The left ventricle is normal in size, wall thickness, and systolic function without any focal wall motion abnormalities. The ejection fraction is estimated to be 60-65%. The E/A ratio is reversed with an elevated E/E', suggesting impaired early relaxation of the left ventricle with possible increased filling pressures. The right ventricle is normal in size, thickness and function. The right ventricular systolic pressure is estimated at 46 mmHg assuming a right atrial pressure of 3 mm Hg. The left atrium is moderately dilated. Right atrial size is normal. There is no significant valvular heart disease. The aortic root is normal size. No significant changes since prior study and no evidence for cardioembolic source for TIA. Procedure: A two-dimensional transthoracic echocardiogram with color flow and Doppler was performed. The study quality was technically adequate. Comparison is made with the echocardiogram of 05-08-16. The patient was in normal sinus rhythm during the exam. Left Ventricle: The left ventricle is normal in size, wall thickness, and systolic function without any focal wall motion abnormalities. The ejection fraction is estimated to be 60-65%. The E/A ratio is reversed with an elevated E/E', suggesting impaired early relaxation of the left ventricle with possible increased filling pressures. Right Ventricle: The right ventricle is normal in size, thickness and function. Atria: The left atrium is moderately dilated. Right atrial size is normal. The interatrial septum is intact with no evidence for an atrial septal defect. Mitral Valve: The mitral valve leaflets appear mildly thickened, but open well. There is mild mitral annular calcification. There is trace mitral regurgitation. Aortic Valve: The aortic valve is moderately calcified. Leaflet mobility is moderately reduced. The calculated aortic valve area is 1.7 cm2. The peak aortic velocity is 1.9 m/sec. The peak aortic velocity on the previous exam was 1.8 m/sec. There is no hemodynamically significant valvular aortic stenosis. No aortic regurgitation is present. Tricuspid Valve: The tricuspid valve is normal in structure and function. There is trace tricuspid regurgitation. The right ventricular systolic pressure is estimated at 46 mmHg assuming a right atrial pressure of 3 mm Hg. Pulmonic Valve: The pulmonic valve is not well seen, but is grossly normal. There is no pulmonic valvular regurgitation. There is no significant valvular heart disease. Great Vessels: The aortic root is normal size. The dimensions of the ascending aorta are normal. The IVC is of normal diameter and collapses greater than 50% with a sniff. This suggests a low right atrial pressure of 3 mm Hg. Pericardium/ Pleura There is no pericardial effusion. There is no pleural effusion. MMode/2D Measurements & Calculations LVIDd: 4.4 cm LA dimension: 4.1 cm RA long axis LVOT diam: 2.0 cm LVIDs: 3.2 cm AoV Opening FS: 27.5 % LA A2 area: 23.7 cm RA area EPSS: 1.1 cm LA A4 area: 22.3 cm Ao root diam IVSd: 0.92 cm LA length (vol) : 15.0 cm LVPWd: 0.97 cm RA vol asc Aorta Diam LA vol: 79.5 ml : 40.0 ml LA vol index RA Ao Arch Diam (Prox : 21.7 mm/ Trans): 2.0 cm RVDd major IVC diam: 1.6 cm : 4.7 cm LV vu. diameter/BSA LV sys. diameter/BSA RVD1 (basal) RVD2 (mid): 2.8 cm (cm/m^2): 2.4 (cm/m^2): 1.7 Doppler Measurements & Calculations Ao V2 max MV E max nick MV E/A: 0.87 TR max nick : 190.5 cm/sec : 97.3 cm/sec Med Peak E' Nick : 326.8 cm/sec Ao max PG MV A max nick TR max PG : 14.5 mmHg : 111.4 cm/sec E/E' med: 18.8 : 42.7 mmHg Ao mean PG MV P1/2t: 53.7 msec Lat Peak E' Nick PA V2 max : 101.7 cm/sec LVOT Max Nick E/E' lat: 14.6 PA mean PG : 94.5 cm/sec E/e' average YI(I,D): 1.7 cm PA Accel Time sev ratio MV A dur: 0.12 sec: 0.11 sec MV dec time MV P1/2t max nick Ao V2 mean LV V1 max PG : 0.18 sec : 124.6 cm/sec Ao V2 VTI: 46.3 cmLV V1 VTI MVA(P1/2t): 4.1 cm2 : 24.7 cm YI(V,D): 1.6 cm2 PA V2 mean YI indexed to BSA : 65.2 cm/sec (cm^2/m^2): 0.92 Brief History Ms. Ashanti Patel is a pleasant 86 year old female with a history of hypertension and remote history of right breast cancer s/p lumpectomy who presents to the ED after she developed a headache 5 days ago and slurred speech 4 days ago. Patient reports a severe but intermittent left-sided headache in the last 5 days. She cannot describe the headache very well, but reports to have occasional "shocking sensation" from the headache. It localizes from the left occiput and radiates to the left frontal. She also notes some changes in vision as well. The headache does not improve with Tylenol. About 4 days ago, her son noted that her speech was a little slurred and the patient also had difficulty finding words, but no other stroke symptoms. Thus, they did not think much of it. The slurred speech resolved the next day, but her headache persists. The patient has been checking her BP at home and it has been high with SBP>200. Today, she discussed this with her friend, who is a nurse, and was recommended to go to the ED. Patient also admits to ongoing shortness of breath and dry cough for 3 months that is currently being worked up by her PCP. Her recent CT chest on 10/03 did not reveal any pulmonary issue. She was given Qvar and Ventolin yesterday. Patient denies any history of smoking, asthma, or COPD. She has been pretty healthy for most of her life. She was diagnosed with HTN about 6 months ago and was started on Lisinopril and Atenolol. Patient states that she has never had UTI in her life, but notes that increased urinary frequency and nocturia recently. She denies dysuria, fever, chills, nausea, vomiting, or abdominal pain. No prior history of stroke or CAD. She admits to high salt diet and recent stress in the family. She also has had uncontrolled right knee pain that she has to use crutches to get around. She has a walker but does not like to use it. In the ED, patient had marked elevated BP of 234/108. Her vital signs were otherwise normal. Unremarkable CBC and CMP. UA positive for many bacteria, WBC, and leukocyte esterase. CT brain without contrast showed No acute intracranial abnormality. NIHSS score of 0. Incidentally, she was found to have fluid opacification of the right maxillary sinus partially visualized suggesting acute sinusitis on the CT. Hospital Course 86 year old female with a history of hypertension and remote history of right breast cancer s/p lumpectomy who presents to the ED after she developed a headache 5 days ago and slurred speech 4 days ago. She is admitted for hypertensive emergency, possible TIA, acute UTI, and acute sinusitis. 1. Acute hypertensive emergency, present on admission, active. - BP up to 234/108 in the ED with possible TIA. - Elevated BP is likely due to right knee pain and recent stress. - In light of possible stroke/TIA, will allow permissive hypertension. Goal SBP is less than 170. - Labetalol IV PRN. Keep MAP above 110. - Will resume PO antihypertensive medications in the AM. Patient takes Atenolol and Lisinopril at home. Due to her chronic dry cough, will switch to Losartan. - Continue to monitor vital signs Q4H. -Day of discharge we increased her losartan to 100 mg by mouth daily and follow- up with her primary care provider in one week. She is to monitor blood pressures at home in the interim. 2. Possible TIA, acute, present on admission, improved. - Normal neurological exam and speech. However, moderate risk for subsequent stroke with age>60, BP >140/90, and slurred speech. - CT brain negative. - MRI stroke protocol in the morning which did not reveal any significant acute abnormalities - PT/ST evaluation in the morning. - Nurse swallow screen. Patient did pass swallow screen today. - Start ASA 324mg and Lipitor 40mg. - Check Echo did not show any acute abnormalities - Lipid panel, A1c, and TSH/Free T4 in the AM. - Monitor for change in neurological status. 3. Acute UTI, uncomplicated, present on admission, active. - UA with significant WBC, leukocyte esterase, and many bacteria. - Urine culture pending. Follow up for sensitivity. - Will start Augmentin 875mg Q12 hours. Pharmacy recommended to treat for 10 days total. - Monitor vital signs. 4. Acute sinusitis, present on admission, active. - Incidental finding on CT brain. - Patient is asymptomatic. - Treat with Augmentin as above. 5. Chronic bilateral hip and knee pain, active. - Recommended orthopedic follow up as outpatient. - Pain control with hydrocodone-APAP PRN in the hospital. 6. Chronic cough, ongoing workup. - Possibly due to ACEi usage. Will d/c Lisinopril. - Follow up as outpatient. 7. History of right breast cancer s/p lumpectomy, presume stable. - Follow up as outpatient. 8. Code status: FULL CODE Exam Vital Signs (Last) Date Time Temp Pulse Resp B/P Pulse Ox O2 Delivery O2 Flow Rate FiO2 10/10/16 08:30 36.4 83 20 189/86 93 Room Air Exam Constitutional: Elderly woman in no acute distress Head: Normocephalic atraumatic Chest: Clear to auscultation Cor: Regular rate and rhythm S1-S2 without murmur Abdomen soft, soft nontender bowel sounds present Extremities: No pedal edema Neuro: Alert and oriented 3, motor strength is intact bilaterally speech is normal. Laboratory Tests 72 Hours Test 10/08/16 20:50 10/08/16 21:49 10/09/16 03:25 White Blood Count 7.5th/mm3 (3.8-10.1) 7.5th/mm3 (3.8-10.1) Red Blood Count 4.49mil/mm3 (3.90-5.20) 4.34mil/mm3 (3.90-5.20) Hemoglobin 13.0g/dL (12.0-15.6) 12.4g/dL (12.0-15.6) Hematocrit 40.1% (35.0-46.0) 38.7% (35.0-46.0) Mean Corpuscular Volume 89.3fL (81-100) 89.2fL (81-100) Mean Corpuscular Hemoglobin 29.0pg (27.0-35.0) 28.6pg (27.0-35.0) Mean Corpuscular Hemoglobin Concent 32.4% (32.0-37.0) 32.0% (32.0-37.0) Red Cell Distribution Width 14.0% (12.3-15.4) 14.0% (12.3-15.4) Platelet Count 339bil/L (150-400) 295bil/L (150-400) Neutrophils (%) (Auto) 74.7% (40-74) 72.3% (40-74) Lymphocytes (%) (Auto) 17.3% (14-46) 16.5% (14-46) Monocytes (%) (Auto) 5.9% (4-12) 7.0% (4-12) Eosinophils (%) (Auto) 1.7% (0-5) 3.6% (0-5) Basophils (%) (Auto) 0.3% (0-3) 0.3% (0-3) Prothrombin Time 10.1sec (8.1-12.5) Prothromb Time International Ratio 0.95ratio Sodium Level 141mEq/L (134-144) 140mEq/L (134-144) Potassium Level 4.1mEq/L (3.5-5.2) 4.2mEq/L (3.5-5.2) Chloride Level 100mEq/L (97-108) 99mEq/L (97-108) Carbon Dioxide Level 22mmol/L (18-29) 22mmol/L (18-29) Blood Urea Nitrogen 10mg/dL (8-27) 9mg/dL (8-27) Creatinine 0.55mg/dL (0.57-1.00) 0.55mg/dL (0.57-1.00) Estimat Glomerular Filtration Rate 150mL/min (>59) 150mL/min (>59) Glucose Level 142mg/dL (60-99) 109mg/dL (60-99) Calcium Level 9.3mg/dL (8.5-10.1) 8.9mg/dL (8.5-10.1) Total Bilirubin 0.3mg/dL (0.0-1.2) 0.3mg/dL (0.0-1.2) Aspartate Amino Transf (AST/SGOT) 18U/L (0-50) 15U/L (0-50) Alanine Aminotransferase (ALT/SGPT) 10U/L (0-32) 8U/L (0-32) Alkaline Phosphatase 73U/L (25-165) 67U/L (25-165) Troponin T 0.010ug/L (0.0-0.011) Total Protein 7.6g/dL (6.4-8.4) 6.5g/dL (6.4-8.4) Albumin 4.3g/dL (3.4-5.0) 4.0g/dL (3.4-5.0) Urine Color Yellow (YELLOW) Urine Appearance Cloudy (CLEAR,HAZY) Urine pH 6.5 (5.0-8.0) Urine Specific [place] 1.020 (1.003-1.035) Urine Protein Negativemg/dL (NEG,TRACE) Urine Glucose (UA) Negativemg/dL (NEGATIVE) Urine Ketones Tracemg/dL (NEGATIVE) Urine Occult Blood Small (NEGATIVE) Urine Nitrite Positive (NEGATIVE) Urine Bilirubin Negative (NEGATIVE) Urine Urobilinogen Normalmg/dL (NORMAL) Urine Leukocyte Esterase Large (NEGATIVE) Urine RBC 3-10/hpf (0-2) Urine WBC >50/hpf (0-5) Urine Epithelial Cells Moderate/hpf (NONE-MOD) Urine Crystals None seen (NONE SEEN) Urine Bacteria Many/hpf (NONE-FEW) Urine Hyaline Casts None/lpf (NONE) Urine Granular Casts None seen (NONE SEEN) Urine Waxy Casts None seen (NONE SEEN) Urine Red Blood Cell Casts None seen (NONE SEEN) Urine White Blood Cell Casts None seen (NONE SEEN) Urine Mucus None seen (None Seen) Urine Trichomonas None seen (NONE SEEN) Urine Yeast None (NONE SEEN) Urinalysis Comment None Urine Culture Reflexed Indicated Hemoglobin A1c 5.8% (4.8-5.6) Magnesium Level 2.3mg/dL (1.6-2.6) Triglycerides Level 106mg/dL (0-149) Cholesterol Level 214mg/dL (100-199) LDL Cholesterol, Calculated 122.800mg/dL (0-99) VLDL Cholesterol 21.200mg/dL HDL Cholesterol 70mg/dL (>39) Cholesterol/HDL Ratio 3.06 (0.0-4.4) Thyroid Stimulating Hormone (TSH) 1.210uIU/mL (0.450-4.500) Free Thyroxine 1.01ng/dL (0.82-1.77) Test 10/08/16 20:50 10/08/16 21:49 10/09/16 03:25 Prothrombin Time 10.1sec (8.1-12.5) Prothromb Time International Ratio 0.95ratio Troponin T 0.010ug/L (0.0-0.011) Urine Color Yellow (YELLOW) Urine Appearance Cloudy (CLEAR,HAZY) Urine pH 6.5 (5.0-8.0) Urine Specific [place] 1.020 (1.003-1.035) Urine Protein Negativemg/dL (NEG,TRACE) Urine Glucose (UA) Negativemg/dL (NEGATIVE) Urine Ketones Tracemg/dL (NEGATIVE) Urine Occult Blood Small (NEGATIVE) Urine Nitrite Positive (NEGATIVE) Urine Bilirubin Negative (NEGATIVE) Urine Urobilinogen Normalmg/dL (NORMAL) Urine Leukocyte Esterase Large (NEGATIVE) Urine RBC 3-10/hpf (0-2) Urine WBC >50/hpf (0-5) Urine Epithelial Cells Moderate/hpf (NONE-MOD) Urine Crystals None seen (NONE SEEN) Urine Bacteria Many/hpf (NONE-FEW) Urine Hyaline Casts None/lpf (NONE) Urine Granular Casts None seen (NONE SEEN) Urine Waxy Casts None seen (NONE SEEN) Urine Red Blood Cell Casts None seen (NONE SEEN) Urine White Blood Cell Casts None seen (NONE SEEN) Urine Mucus None seen (None Seen) Urine Trichomonas None seen (NONE SEEN) Urine Yeast None (NONE SEEN) Urinalysis Comment None Urine Culture Reflexed Indicated White Blood Count 7.5th/mm3 (3.8-10.1) Red Blood Count 4.34mil/mm3 (3.90-5.20) Hemoglobin 12.4g/dL (12.0-15.6) Hematocrit 38.7% (35.0-46.0) Mean Corpuscular Volume 89.2fL (81-100) Mean Corpuscular Hemoglobin 28.6pg (27.0-35.0) Mean Corpuscular Hemoglobin Concent 32.0% (32.0-37.0) Red Cell Distribution Width 14.0% (12.3-15.4) Platelet Count 295bil/L (150-400) Neutrophils (%) (Auto) 72.3% (40-74) Lymphocytes (%) (Auto) 16.5% (14-46) Monocytes (%) (Auto) 7.0% (4-12) Eosinophils (%) (Auto) 3.6% (0-5) Basophils (%) (Auto) 0.3% (0-3) Sodium Level 140mEq/L (134-144) Potassium Level 4.2mEq/L (3.5-5.2) Chloride Level 99mEq/L (97-108) Carbon Dioxide Level 22mmol/L (18-29) Blood Urea Nitrogen 9mg/dL (8-27) Creatinine 0.55mg/dL (0.57-1.00) Estimat Glomerular Filtration Rate 150mL/min (>59) Glucose Level 109mg/dL (60-99) Hemoglobin A1c 5.8% (4.8-5.6) Calcium Level 8.9mg/dL (8.5-10.1) Magnesium Level 2.3mg/dL (1.6-2.6) Total Bilirubin 0.3mg/dL (0.0-1.2) Aspartate Amino Transf (AST/SGOT) 15U/L (0-50) Alanine Aminotransferase (ALT/SGPT) 8U/L (0-32) Alkaline Phosphatase 67U/L (25-165) Total Protein 6.5g/dL (6.4-8.4) Albumin 4.0g/dL (3.4-5.0) Triglycerides Level 106mg/dL (0-149) Cholesterol Level 214mg/dL (100-199) LDL Cholesterol, Calculated 122.800mg/dL (0-99) VLDL Cholesterol 21.200mg/dL HDL Cholesterol 70mg/dL (>39) Cholesterol/HDL Ratio 3.06 (0.0-4.4) Thyroid Stimulating Hormone (TSH) 1.210uIU/mL (0.450-4.500) Free Thyroxine 1.01ng/dL (0.82-1.77) Discharge Medications Discharge Medications ([Qvar]) 40 MCG INHALATION 2 PUFF DAILY (Reported) Amoxicillin/Clav K 875-125 mg (Amoxicillin/Clav K 875-125 mg) 875 Mg Tab 1 TAB PO BID Prescribed by: GABRIELA HENRY MD Aspirin Chew (Aspirin Chew) 81 Mg Chew 81 MG PO DAILY Prescribed by: GABRIELA HENRY MD Atenolol (Atenolol) 50 Mg Tablet 50 MG PO DAILY (Reported) Atorvastatin Calcium (Atorvastatin Calcium) 40 Mg Tablet 40 MG PO HS Prescribed by: GABRIELA HENRY MD Ferrous Sulfate (Ferrous Sulfate) 325 Mg Tablet 325 MG PO DAILY (Reported) Lactobacillus Acidophilus (Acidophilus Lactobacilli) 500 Million Cell Capsule 1 EACH PO BID Prescribed by: GABRIELA HENRY MD Losartan Potassium (Cozaar) 50 Mg Tablet 100 MG PO DAILY Prescribed by: GABRIELA HENRY MD Montelukast (Montelukast) 10 Mg Tablet 10 MG PO HS (Reported) As needed Albuterol HFA (Proair HFA) 8.5 Gm Hfa.aer.ad 2 PUFFS INHALATION Q4H PRN PRN For Shortness of Breath (Reported) Followup Plan Disposition: Home Discharge Diet: Heart Healthy Discharge Activity: No restrictions Follow-up Provider: Deandre Briceño DO Follow-up with PCP in: 1 week (sooner if problems.) Time spent 60 minutes Gabriela Henry MD Oct 10, 2016 09:00
[2016-10-10] MEDS: Amoxicillin-Clav 875-125 mg Tablet PO SCH (10:30)
--- NOTE | 2016-10-10 11:15 | NUR ---
Social Work: Initial Assessment D: Per EMR review, pt is an 86 year old female admitted for TIA/UTI/HNT. Pt is Medicare with [employer]; pt has no LTC insurance or VA benefits. PCP is Deandre Briceño DO. NOK is Zen Chavez, spouse, . Advanced directives not completed- pt declined info from [employer]. Readmit score is low, 2/8. HAND THERMAL C[employer]TER met with pt at bedside. Sw role explained and contact info provided. See initial assessment. Pt lives in [place] with her spouse and is I with ADLs at baseline. Pt owns a FWW and has been encouraged to use, per PT evaluation. Pt has never had HH or Skilled rehab. Pt does not drive and relies on her spouse. PT evaluation recommending pt discharge home with the use of FWW which pt states she owns. Pt expressed interest in information on private pay caregiving for things like chores and meal prep. [employer] provided information. Pt expresses no further discharge needs and states her will drive her home. A: Pt who is I at baseline. P: Anticipate pt to discharge home via POV once medically stable; [facility] [employer] to continue to follow. MIKA Ramos Addendum: 10/10/16 at 1120 by MARKO EGAN Amended: Links added.
[2016-10-10] MEDS ORDERED: HYDR-4003 PO ×2 (11:17)
--- NOTE | 2016-10-10 12:02 | NUR ---
Discharge pt ordered for discharge home. medications and instructions reviewed with patient and daughter. pt escorted to front lobby via wheelchair, with all belongings at about 1200.
== END 2016-10-10 12:05 | disposition home or self-care (01) | DRG 305 ==
LOC: SED 17:12 → PCC 23:00 → OBSVTOIN 23:00 → PCC 10-09 00:02
PROVIDERS: ADMIT Hospitalist; ATTEND Hospitalist
DX: I16.0 Hypertensive urgency (principal); N39.0 Urinary tract infection, site not specified; G45.9 Transient cerebral ischemic attack, unspecified; I16.1 Hypertensive emergency; J01.00 Acute maxillary sinusitis, unspecified; R47.81 Slurred speech; R29.700 NIHSS score 0; Z85.3 Personal history of malignant neoplasm of breast; I10 Essential (primary) hypertension

== ENCOUNTER 2016-11-11 19:12 | Emergency (ER) | payer MEDICARE, OTHER ==
[~2016-11-11] VITALS: Ht 162.6 cm; Wt 81.8 kg
[~2016-11-11 19:12] MED LIST: AGM875T PO; ALBU8.5H2 INHALATION; ASPI81TA3 PO; ATEN50TA PO; ATOR40TA69 PO; FERR-83 PO; HYDR-4003 PO; LACT1CAP86 PO; LOSA50TA3 PO; MONT10TA23 PO; QVAR INHALATION
[2016-11-11 19:15] VITALS: BP 221/97; PULSE 76; RESP 18; O2SAT 97
[2016-11-11 19:43] LABS: BASOPHILS % (AUTO) 0.3 % (0-3); EOSINOPHILS % (AUTO) 11.7 % (0-5); MONOCYTES % (AUTO) 5.5 % (4-12); Mean Corpuscular Hemoglobin 28.9 pg (27.0-35.0); NEUTROPHILS % (AUTO) 61.9 % (40-74); Platelet Count 271 bil/L (150-400)
[2016-11-11 20:00] LABS: INR 0.91 ratio
[2016-11-11 20:30] VITALS: BP 198/68; PULSE 64; RESP 16; O2SAT 97
--- NOTE | 2016-11-11 20:39 | ED.REPORT ---
HPI-General Illness Date of Service Nov 11, 2016 ED Provider: Carlos Alberto Smith DO An 86 year old female with a history of hypertension presents to the ED accompanied by her daughter with hypertension (221/ in ED) onset this evening. Associated symptoms include generalized weakness and intermittent vision change. The patient denies numbness, focal weakness, headache, chest pain , SOB, abdominal pain, nausea, vomiting, or other symptoms. She was recently hospitalized for two nights (10/08-10/10) with dysarthria and hypertensive emergency. Nursing Notes Stated Complaint: HIGH BLOOD PRESSURE Chief Complaint: General Complaint Nursing Notes Reviewed: Yes Allergies: Coded Allergies: Sulfa (Sulfonamide Antibiotics) (Verified Allergy, Intermediate, rash, ) Scheduled ([Qvar]) 40 MCG INHALATION 2 PUFF DAILY Amlodipine (Amlodipine) 5 Mg Tablet 5 MG PO DAILY Amoxicillin/Clav K 875-125 mg (Amoxicillin/Clav K 875-125 mg) 875 Mg Tab 1 TAB PO BID Aspirin Chew (Aspirin Chew) 81 Mg Chew 81 MG PO DAILY Atenolol (Atenolol) 50 Mg Tablet 50 MG PO DAILY Atorvastatin Calcium (Atorvastatin Calcium) 40 Mg Tablet 40 MG PO HS Ferrous Sulfate (Ferrous Sulfate) 325 Mg Tablet 325 MG PO DAILY Lactobacillus Acidophilus (Acidophilus Lactobacilli) 500 Million Cell Capsule 1 EACH PO BID Losartan Potassium (Cozaar) 50 Mg Tablet 100 MG PO DAILY Montelukast (Montelukast) 10 Mg Tablet 10 MG PO HS Scheduled PRN Albuterol HFA (Proair HFA) 8.5 Gm Hfa.aer.ad 2 PUFFS INHALATION Q4H PRN PRN For Shortness of Breath Hydrocodone-Acetaminophen 5-325 mg (Hydrocodone-Acetaminophen 5-325 mg) 1 Each Tablet 1 TABLET PO Q4 PRN PRN For Mild Pain Hydrocodone-Acetaminophen 5-325 mg (Hydrocodone-Acetaminophen 5-325 mg) 1 Each Tablet 1 TABLET PO Q4H PRN PRN For Pain General Time Seen by MD: 20:35 Chief Complaint Other (Hypertension) Hx Obtained From: Patient, Daughter Arrived By: Walk-in Sudden in Onset?: No Onset Occurred: 1 - 4 hours ago Symptom Duration: Since onset Severity: Current: No pain currently Severity: Maximum: No pain Pertinent Negative: Relieved by nothing Context Related History: Reports Cancer Recent Healthcare: Recent doctor visit, Recent hospitalization Similar Sx Previous: Yes Past Medical History Past Medical History Right breast cancer s/p lumpectomy Reports: Hypertension Past Surgical History 4 hip surgeries, including bilateral hip replacements and revisions Appendectomy Hysterectomy Right breast lumpectomy Smoking History Never Smoker Social History Other Social History: Good social support, Local resident Ambulatory Status Independent Review of Systems + Hypertension (221/97 in ED) Full Review of Systems Constitutional: Reports: Weakness - generalized, Denies: Fever Respiratory: Denies: Non-productive cough, Shortness of breath Cardiovascular: Denies: Chest pain GI: Denies: Abdominal pain, Diarrhea, Nausea, Vomiting Neurologic: Reports: Vision change (Intermittent), Denies: Focal weakness, Headache, Numbness Complete sys rev & neg: except as marked. Physical Exam Vital Signs Vital Signs Date Time Temp Pulse Resp B/P Pulse Ox O2 Delivery O2 Flow Rate FiO2 11/11/16 21:36 36.9 65 14 175/57 97 Room Air 11/11/16 21:24 36.9 65 14 175/57 97 Room Air 11/11/16 20:30 64 16 198/68 97 Room Air 11/11/16 19:15 36.1 76 18 221/97 97 Room Air Initial VS: Reviewed Head / Eyes: Atraumatic, Normocephalic ENT: Conjunctiva normal, No scleral icterus Neck: Supple, Full range of motion Respiratory: Breath sounds normal, Clear to auscultation, No respiratory distress Cardiovascular: Regular rate & rhythm, Heart sounds normal Abdomen / GI: Soft, Non-tender Skin: Warm, Dry, No cyanosis Neurologic: Alert, Oriented, Nonfocal Psychiatric: Mood/affect normal, Behavior normal, Normal thought content General/Constitutional: Awake, Alert Hypertensive Interpretation & Diagnostics Lab Results Interpretation Result Diagram: 11/11/16193611/11/161936 Test 11/11/16 19:37 White Blood Count 6.0th/mm3 (3.8-10.1) Red Blood Count 4.57mil/mm3 (3.90-5.20) Hemoglobin 13.2g/dL (12.0-15.6) Hematocrit 40.2% (35.0-46.0) Mean Corpuscular Volume 88.0fL (81-100) Mean Corpuscular Hemoglobin 28.9pg (27.0-35.0) Mean Corpuscular Hemoglobin Concent 32.8% (32.0-37.0) Red Cell Distribution Width 13.4% (12.3-15.4) Platelet Count 271bil/L (150-400) Neutrophils (%) (Auto) 61.9% (40-74) Lymphocytes (%) (Auto) 20.4% (14-46) Monocytes (%) (Auto) 5.5% (4-12) Eosinophils (%) (Auto) 11.7% (0-5) Basophils (%) (Auto) 0.3% (0-3) Prothrombin Time 9.7sec (8.1-12.5) Prothromb Time International Ratio 0.91ratio Sodium Level 139mEq/L (134-144) Potassium Level 4.1mEq/L (3.5-5.2) Chloride Level 98mEq/L (97-108) Carbon Dioxide Level 26mmol/L (18-29) Blood Urea Nitrogen 16mg/dL (8-27) Creatinine 0.68mg/dL (0.57-1.00) Estimat Glomerular Filtration Rate 118mL/min (>59) Glucose Level 111mg/dL (60-99) Calcium Level 10.2mg/dL (8.5-10.1) Total Bilirubin 0.4mg/dL (0.0-1.2) Aspartate Amino Transf (AST/SGOT) 28U/L (0-50) Alanine Aminotransferase (ALT/SGPT) 28U/L (0-32) Alkaline Phosphatase 95U/L (25-165) Total Protein 7.9g/dL (6.4-8.4) Albumin 4.5g/dL (3.4-5.0) Hold Clark Top Tube Received (Received) Re-Eval/Medical Decision Med Decision/Clinical Course Hypertension without hypertensive emergency, will give a dose of amlodipine and recommend using amlodipine daily. Return and follow-up precautions given. Source of Hx: Old records Time of Eval: 20:54 Patient Status: Condition improved Re-Evaluation/Progress Note: Discussed with patient lab results, diagnosis, and plan for discharge. Follow-up and return to the ER instructions given. Patient agrees with plan for care and all questions were addressed. Counseled Regarding: Diagnosis, Lab results, Need for follow-up, When/why to return to ED Discharge & Departure Primary Impression: Hypertension Hypertension type: essential hypertension Qualified Code: I10 - Essential ( primary) hypertension Disposition: Home Discharge Condition All VS Reviewed: Yes Condition: Improved Patient Instructions: Chronic Hypertension (ED) Additional Instructions: Thank you for entrusting us with your care. Your exam today was reassuring for any serious illness at this time. Please take amlodipine as prescribed. Call your primary care provider tomorrow for a follow-up appointment this week. Return to the ER with any new or worsening symptoms including focal weakness, slurred speech, or numbness. Referrals: Deandre Briceño DO (PCP) Faustoibtyolr Attestation Portions of this note were transcribed by Niurka Diane. I, Dr. Smith, personally performed the history, physical exam, and medical decision-making; I reviewed and confirmed the accuracy of the information in the transcribed note. Signed by: Beto Alan, 11/11/2016, 22:00 copies to: Deandre Briceño Timothy S DO Nov 11, 2016 20:39 NIURKA DIANE Nov 11, 2016 20:52
[2016-11-11] MEDS ORDERED: AMLO5TAB2 PO (21:14)
[2016-11-11 21:24] VITALS: BP 175/57; PULSE 65; RESP 14; O2SAT 97
[2016-11-11 21:36] VITALS: BP 175/57; PULSE 65; RESP 14; O2SAT 97
== END 2016-11-11 21:36 | disposition home or self-care (01) ==
LOC: SED 19:12
DX: I10 Essential (primary) hypertension (principal); Z85.3 Personal history of malignant neoplasm of breast; Z90.710 Acquired absence of both cervix and uterus; Z79.82 Long term (current) use of aspirin; Z79.899 Other long term (current) drug therapy; Z88.2 Allergy status to sulfonamides